=== PATIENT | female | born 1970 | race American Indian/Alaskan Native ===

== ENCOUNTER 2020-01-29 10:27 | Outpatient (CLI) | payer MEDICAID ==
--- NOTE | 2020-01-29 11:24 | Cat Scan Report ---
CT head/brain wo con INDICATION: SYNCOPE/COLLAPSE MIGRAINE HEADACHE ON SIDE AND BACK OF HEAD GOT OFF BALANCE AND FELL AND HIT HEAD . TECHNIQUE: Routine CT head without contrast. All CT scans at this location are performed using CT dose reduction for ALARA by means of automated exposure control. COMPARISON: None. FINDINGS: BRAIN / INTRACRANIAL CONTENTS: No acute hemorrhage, brain edema, mass effect, or hydrocephalus. Sheryl l alejandro-white differentiation. No chronic infarct or focal atrophy. Normal brain volume and ventricula r/sulcal size for age. There is developmental cavum septum pellucidum. CALVARIUM/SKULL BASE/CRANIOCERVICAL JUNCTION: No evidence of fracture. ORBITS: No significant abnormality of visualized orbits. SINUSES / MASTOIDS: No significant abnormality of visualized sinuses and mastoid air cells. ADDITIONAL FINDINGS: None. IMPRESSION: 1. No acute post-traumatic intracranial abnormality. Signer Name: Gavin Engle MD Signed: 01/29/2020 11:20 AM Workstation Name: [id number]
== END 2020-01-29 10:28 | disposition home or self-care (01) ==
LOC: CT 10:27
PROVIDERS: ATTEND Internal Medicine Cardiovascular Disease
DX: R55 Syncope and collapse (principal)
CPT/HCPCS: 70450